=== PATIENT | female | born 1985 | race American Indian/Alaskan Native ===

== ENCOUNTER 2018-11-08 12:27 | Emergency (ER) | payer OTHER ==
[2018-11-08] MEDS ORDERED: ZOFRAN IV ONE (12:32)
[2018-11-08] MEDS ORDERED: TORADOL IV ONE (12:32)
[2018-11-08] MEDS ORDERED: BENADRYL IV ONE (12:32)
--- NOTE | 2018-11-08 12:32 | Event Note ---
ED Screening Note Date of service: 11/08/18 Time: 12:31 ED Screening Note: 33 y o female presents to ED cc of migraines headace states hx x 15 years positive n/v/blurry cision This initial assessment/diagnostic orders/clinical plan/treatment(s) is/are subject to change based on patients health status, clinical progression and re- assessment by fellow clinical providers in the ED. Further treatment and workup at subsequent clinical providers discretion. Patient/guardian urged not to elope from the ED as their condition may be serious if not clinically assessed and managed. Initial orders include: IVF: zofran, benadryl.toradol ACC eval
[2018-11-08] MEDS ORDERED: NACL 0.9% 1000 ML 1,000 ML IV ONE (12:45)
[2018-11-08] MEDS ORDERED: NACL 0.9% 1000 ML 1,000 ML ONE (12:47)
--- NOTE | 2018-11-08 14:11 | Emergency Department Report ---
ED Headache HPI - General Chief Complaint: Headache Stated Complaint: MIGRANE/VOMIT Time Seen by Provider: 11/08/18 12:30 - History of Present Illness Initial Comments: Patient is a 33-year-old [place] female who is presenting with exacerbation of her migraines. Patient does have a history of migraines and states the headache is similar to migraine she's had in the past. She has had nausea vomiting light sensitivity. Patient denies fevers chills Stiffness. Allergies/Adverse Reactions: Allergies No Known Allergies Allergy (Unverified 11/08/18 12:31) Home Medications: Ambulatory Orders Ketorolac [Toradol] 10 mg PO Q6H PRN #12 tablet 11/08/18 Ondansetron [Zofran Odt] 4 mg PO Q8HR #10 tab.rapdis 11/08/18 traMADol [Ultram] 50 mg PO Q6HR PRN #12 tablet 11/08/18 ED Review of Systems ROS: Stated complaint: MIGRANE/VOMIT Other details as noted in HPI Comment: All other systems reviewed and negative ED Past Medical Hx - Past Medical History Previous Medical History?: Yes Hx Headaches / Migraines: Yes - Surgical History Past Surgical History?: No - Social History Smoking Status: Never Smoker Substance Use Type: None - Medications Home Medications: Home Medications Medication Instructions Recorded Confirmed Last Taken Type Ketorolac [Toradol] 10 mg PO Q6H PRN #12 tablet 11/08/18 Unknown Rx Ondansetron [Zofran Odt] 4 mg PO Q8HR #10 tab.rapdis 11/08/18 Unknown Rx traMADol [Ultram] 50 mg PO Q6HR PRN #12 tablet 11/08/18 Unknown Rx ED Physical Exam - General Limitations: No Limitations General appearance: alert, in no apparent distress - Head Head exam: Present: atraumatic, normocephalic - Eye Eye exam: Present: normal appearance - ENT ENT exam: Present: mucous membranes moist - Neck Neck exam: Present: normal inspection - Respiratory Respiratory exam: Present: normal lung sounds bilaterally. Absent: respiratory distress, wheezes, rales, rhonchi - Cardiovascular Cardiovascular Exam: Present: regular rate, normal rhythm, normal heart sounds. Absent: systolic murmur, diastolic murmur, rubs, gallop - GI/Abdominal GI/Abdominal exam: Present: soft, normal bowel sounds. Absent: distended, tenderness, guarding - Extremities Exam Extremities exam: Present: normal inspection - Back Exam Back exam: Present: normal inspection - Neurological Exam Neurological exam: Present: alert, oriented X3 - Psychiatric Psychiatric exam: Present: normal affect, normal mood - Skin Skin exam: Present: warm, dry, intact, normal color. Absent: rash ED Course Vital Signs 11/08/18 11/08/18 12:30 12:48 Temperature 98.1 F Pulse Rate 77 Respiratory 16 16 Rate Blood Pressure 162/92 O2 Sat by Pulse 98 Oximetry ED Medical Decision Making - Medical Decision Making She was hydrated and given antiemetics and started to feel better. Patient be discharged home. Critical care attestation.: If time is entered above; I have spent that time in minutes in the direct care of this critically ill patient, excluding procedure time. ED Disposition Clinical Impression: Migraine Qualifiers: Migraine type: without aura Status migrainosus presence: without status migrainosus Intractability: not intractable Qualified Code(s): G43.009 - Migraine without aura, not intractable, without status migrainosus Disposition: DC-01 TO HOME OR SELFCARE Is pt being admited?: No Does the pt Need Aspirin: No Condition: Stable Instructions: Migraine Headache (ED) Referrals: YAMILET MCCLAIN MD [Staff Physician] - 3-5 Days Time of Disposition: 14:11
[2018-11-08 14:41] VITALS: BP 138/76
== END 2018-11-08 14:53 | disposition home or self-care (01) ==
LOC: ED 12:27
DX: G43.909 Migraine, unspecified, not intractable, without status migrainosus (principal); Z79.899 Other long term (current) drug therapy
CPT/HCPCS: 96361; 96374; 96375; 99282; J1200; J1885; J2405; J7030